=== PATIENT | male | born 1935 | race Caucasian/White ===

== ENCOUNTER 2019-09-14 14:20 | Inpatient (IN) | payer MEDICARE, OTHER ==
[~2019-09-14] VITALS: Ht 182.9 cm; Wt 70.8 kg
[2019-09-14] MEDS ORDERED: SODIUM CHLORIDE 0.9% 1,000 ML IV ONE (14:32)
[2019-09-14 15:03] LABS: Basophils # (auto) 0 10 ^3/uL (0-0.2); Basophils % (auto) 0.1 % (0.0-2.0); Eosinophils # (auto) 0 10 ^3/uL (0-0.8); Eosinophils % (auto) 0.2 % (0.0-7.0); Hematocrit 31.9 % (41.0-53.0); Hemoglobin 10.8 g/dL (13.5-17.5); Lymphocytes # (auto) 0.8 10 ^3/uL (0.4-5.4); Lymphocytes % (auto) 10.1 % (10.0-50.0); Mean Corpuscular Hemoglobin 33.1 pg (28.0-32.0); Mean Corpuscular Hgb Conc. 33.9 g/dL (32.0-36.0); Mean Corpuscular Volume 97.8 fL (80.0-100.0); Monocytes # (auto) 0.5 10 ^3/uL (0-1.3); Monocytes % (auto) 5.9 % (0.0-12.0); Neutrophils # (auto) 6.7 10 ^3/uL (1.6-8.6); Neutrophils % (auto) 83.7 % (37.0-80.0); Platelet Count (auto) 207 10^3/uL (140-450); Red Blood Cells 3.26 10^6/uL (4.5-5.90); Red Cell Distribution Width 13.9 % (11.8-14.3)
[2019-09-14 15:17] LABS: Albumin 3.5 g/dL (3.4-5.0); Anion Gap 15 (5-15); Blood Urea Nitrogen 68 mg/dL (7-18); Calcium 8.3 mg/dL (8.5-10.1); Carbon Dioxide 21 mmol/L (21-32); Chloride 98 mmol/L (98-107); Glucose 81 mg/dL (74-106); Potassium 4.2 mmol/L (3.5-5.1); Sodium 134 mmol/L (136-145)
[2019-09-14 15:22] LABS: Alanine Aminotransferase 31 U/L (16-61); Alkaline Phosphatase 73 U/L (45-117); Aspartate Aminotransferase 47 U/L (15-37); BUN/Creatinine Ratio 17.8; Bilirubin, Total 1.3 mg/dL (0.2-1.0); GFR African American 19 mL/min; GFR Non-African American 16 mL/min; Total Protein 7.1 g/dL (6.4-8.2)
[2019-09-14 16:11] LABS: INR > 8.0 (0.9-1.15)
[2019-09-14 16:12] LABS: Partial Thromboplastin Time 85.3 sec (23.64-32.05)
[2019-09-14] MEDS ORDERED: FUROSEMIDE 20 MG/2 ML VIAL IV ONE ×2 (16:15→16:30)
[2019-09-14] MEDS ORDERED: ALUM & MAG HYDROX-SIMETH LIQ(MAALOX) 30 ML PO PRN (16:30)
[2019-09-14] MEDS ORDERED: DOCUSATE SOD 100 MG CAP PO PRN (16:30)
[2019-09-14] MEDS ORDERED: PHYTONADIONE(VitK) ORAL Susp 10mg/10ml(1mg/ml) PO ONE (16:30)
[2019-09-14] MEDS ORDERED: NITROGLYCERIN 0.4 MG SL TAB SL PRN (16:30)
[2019-09-14] MEDS ORDERED: MORPHINE SULF INJ 2 MG/ML SYRINGE 1ML IV PRN ×2 (16:30)
[2019-09-14] MEDS ORDERED: CALCIUM GLUC 4.65meq/50ml D5AE 50 ML IV ONE (16:30)
[2019-09-14] MEDS ORDERED: ONDANSETRON HCL 4 MG/2 ML VIAL IV PRN (16:30)
[2019-09-14] MEDS ORDERED: POTASSIUM CHL 20MEQ/100ML 100 ML IV ONE (16:30)
[2019-09-14] MEDS ORDERED: MAGNESIUM SULFATE 1GM/100ML 100 ML IV ONE (16:30)
[2019-09-14] MEDS ORDERED: LORazepam 0.5 MG TAB PO PRN (16:30)
[2019-09-14] MEDS: HYDROcodone-ACET 5/325MG TAB PO PRN ×2 (16:55→22:25)
[2019-09-14] MEDS: TAMSULOSIN HYDROCHLORIDE 0.4 MG CAP PO SCH (18:35)
[2019-09-14 18:44] LABS: Urine Bacteria FEW /hpf (None Seen); Urine Blood TRACE /uL (Negative); Urine Hyaline Cast FEW /lpf (0 - 2); Urine Mucus FEW (None Seen); Urine Specific Gravity 1.006 (1.001-1.035); Urine WBC 1 /hpf (0 - 3)
[2019-09-14] MEDS: SODIUM CHLORIDE 0.9% 1,000 ML IV SCH (19:02)
[2019-09-14 19:55] LABS: Cholesterol 126 mg/dL (< 200); HDL Cholesterol 47 mg/dL (40-59); LDL Cholesterol 60 mg/dL (< 100); Triglycerides 100 mg/dL (< 150)
[2019-09-14 20:40] VITALS: BP 116/73
--- NOTE | 2019-09-14 20:40 | NUR ---
Telemetry admit from ER LUL SALAZAR admitted to Telemetry unit after SBAR received. Patient oriented to Isis Bello, primary RN, unit, room, bed, and unit policies regarding patient care. Patient now on continuous telemetry monitoring, tele box # and telemetry reading on arrival to unit is SR 92 . Patient placed on bedside oxygen, weighed by bed scale and encouraged to call if they need something. PATIENT IS FORGETFUL. ADMISSION WILL BE COMPLETED USING CHART. UNABLE TO CONTACT FAMILY, PATIENT DOES NOT REMEMBER PHONE NUMBERS. PATIENT DOES NOT HAVE PREVIOUS VISITS RECORDED. Note:
--- NOTE | 2019-09-14 21:12 | NUR ---
CALL FROM [employer] STATED THAT PATIENT IS POSITIVE FOR COVID-19 CHARGE NURSE AWARE.
[2019-09-14] MEDS: ATORVASTATIN 20 MG TAB PO SCH (21:53)
[2019-09-14] MEDS: GABAPENTIN 100 MG CAP PO SCH (21:54)
[2019-09-14] MEDS: METOPROLOL TARTRATE 25 MG TAB PO SCH (21:54)
--- NOTE | 2019-09-15 01:44 | NUR ---
BELONGINGS FORM SIGNED BY TO RNs IN ORDER TO AVOID BRINGING FORM IN AND OUT OF ROOM. PATIENT IS COVID-19 POSITIVE.
--- NOTE | 2019-09-15 01:45 | NUR ---
UNABLE TO OBTAIN HOME MEDS. PATIENT IS FORGETFUL ORIENTED X2.
--- NOTE | 2019-09-15 05:30 | NUR ---
CALLED LAB. PER EL DOCK MANAGER, SHE WILL PAGE ON FLOOR DOCK MANAGER TO WITHDRAW BLOOD FOR MORNING LABS.
--- NOTE | 2019-09-15 05:45 | NUR ---
MRSA SWAB SENT TO LAB.
[2019-09-15] MEDS ORDERED: FUROSEMIDE 20 MG/2 ML VIAL IV SCH (06:00)
--- NOTE | 2019-09-15 06:35 | NUR ---
PATIENT MOVED TO 237 PER CHARGE NURSE. ALL PERSONAL BELONGINGS WITH PATIENT.
--- NOTE | 2019-09-15 06:52 | NUR ---
ROUNDS PATIENT IS COMFORTABLE IN BED. NO S/SX OF DISTRESS, SOB OR PAIN. PATIENT IS CALM AND RELAXED. PATIENT IS STATING THAT DOCTOR RADHA IS HIS PRIMARY AND ENTRY LEVEL RECEPTIONIST; WILL ENDORSE FOLLOW UP TO DAY SHIFT NURSE.
--- NOTE | 2019-09-15 06:59 | NUR ---
FINE EMPTIED WITH 1750 MLS CLEAR YELLOW URINE.
--- NOTE | 2019-09-15 07:30 | NUR ---
Opening Shift Note Assumed care of patient, awake and alert. No S/S of distress/SOB or pain. Instructed on POC and to call for assist PRN, will continue to monitor for changes Q1hr and PRN. Fall precautions in place per safety protocol.
--- NOTE | 2019-09-15 07:30 | NUR ---
CLOSING NOTE- NOC SHIFT ENDORSED PATIENT CARE TO DAY SHIFT NURSE JESSICA GUZMÁN. PATIENT IS COMFORTABLE IN BED. NO S/SX OF DISTRESS, SOB OR PAIN.
[2019-09-15 07:49] LABS: Basophils # (auto) 0 10 ^3/uL (0-0.2); Basophils % (auto) 0.3 % (0.0-2.0); Eosinophils # (auto) 0.2 10 ^3/uL (0-0.8); Eosinophils % (auto) 2.8 % (0.0-7.0); Hematocrit 26.7 % (41.0-53.0); Hemoglobin 9.1 g/dL (13.5-17.5); Lymphocytes # (auto) 0.7 10 ^3/uL (0.4-5.4); Lymphocytes % (auto) 11.5 % (10.0-50.0); Mean Corpuscular Hemoglobin 33.2 pg (28.0-32.0); Mean Corpuscular Volume 97.6 fL (80.0-100.0); Monocytes # (auto) 0.4 10 ^3/uL (0-1.3); Monocytes % (auto) 7.6 % (0.0-12.0); Neutrophils # (auto) 4.6 10 ^3/uL (1.6-8.6); Neutrophils % (auto) 77.8 % (37.0-80.0); Platelet Count (auto) 171 10^3/uL (140-450); Red Blood Cells 2.74 10^6/uL (4.5-5.90); Red Cell Distribution Width 13.7 % (11.8-14.3); White Blood Cell 5.9 10^3/uL (4.4-10.8)
[2019-09-15 08:00] VITALS: BP 109/67
[2019-09-15 08:07] LABS: Albumin 2.8 g/dL (3.4-5.0); Calcium 7.7 mg/dL (8.5-10.1); Magnesium 3.1 mg/dL (1.6-2.6); Potassium 3.6 mmol/L (3.5-5.1)
[2019-09-15 08:10] LABS: BUN/Creatinine Ratio 18.8; Bilirubin, Total 1.2 mg/dL (0.2-1.0); Total Protein 5.9 g/dL (6.4-8.2)
[2019-09-15 08:25] LABS: INR 6.93 (0.9-1.15)
[2019-09-15 08:26] LABS: Partial Thromboplastin Time 83.2 sec (23.64-32.05)
--- NOTE | 2019-09-15 08:30 | NUR ---
Patient states he needs to go, this nurse asked, where? Patient replied and states, "I need to go with God, I need to call my son and daughter to tell them I need to go". This nurse asked patient if he felt like hurting himself and patient stated, "with what, I have nothing. I just need to go. this all needs to be done." This nurse reassured patient that he was in the hospital and we are helping him get better. Patient is being followed by medical social worker. Will inquire about tele psych consult as patient is COVID + at this time. Will cont to monitor patient.
[2019-09-15] MEDS: SODIUM CHLORIDE 0.9% 1,000 ML IV SCH (09:05)
--- NOTE | 2019-09-15 09:40 | NUR ---
Critical Lab Received critical INR 6.93 and PTT 85.3. MD Moy aware. Per MD Moy, she will look over labs and put in orders if needed. Will cont to monitor patient.
[2019-09-15] MEDS ORDERED: LISINOPRIL 5 MG TAB PO SCH (10:00)
[2019-09-15] MEDS ORDERED: NIFEdipine ER 30 MG TAB PO SCH (10:00)
[2019-09-15] MEDS ORDERED: POTASSIUM CHL 20 Meq TABLET PO SCH (10:00)
[2019-09-15] MEDS: GABAPENTIN 100 MG CAP PO SCH ×2 (10:56→21:17)
[2019-09-15] MEDS: METOPROLOL TARTRATE 25 MG TAB PO SCH (10:56)
[2019-09-15] MEDS ORDERED: PHYTONADIONE(VitK) ORAL Susp 10mg/10ml(1mg/ml) PO ONE (11:45)
[2019-09-15 12:00] VITALS: BP 114/78
--- NOTE | 2019-09-15 12:28 | NUR ---
Nutrition Assessment Notes Please refer to link for full assessment notes. Est Energy needs: 0745-5148 kcals (23-25 kcal/kgBW) Est Protein needs: 64-71 gms/day (1.0-1.1 gm/kgBW) Will continue to monitor and reassess prn. Addendum: 09/15/19 at [address] Amended: Links added.
--- NOTE | 2019-09-15 12:45 | NUR ---
Patient refusing to eat. This nurse educated patient on the importance of good nutrition for recovery, however patient still refusing to eat, stating "this needs to end." Patient already being followed by dietary. Will do Telepsych consult at this time for depression.
--- NOTE | 2019-09-15 13:00 | NUR ---
WOUND CARE NOTE: SPECIALTY AIR MATTRESS ORDERED AT THIS TIME. PATIENT TO BE PLACED, PENDING DELIVERY BY RACHEAL THAPA
--- NOTE | 2019-09-15 14:30 | NUR ---
Hospitalist at bedside MD Moreira at bedside, aware of patient status. MD moreira discussed plan of care and code status with patient thoroughly. Patient verbalized understanding and states he wants to be a DNR. Patient is alert and oriented x4. MD Moreira also asked about depression or suicidal thoughts, patient states, he would like to speak to a psychiatrist. MD Moreira will put imput orders for psych eval. Will carry out new orders and cont to monitor patient.
--- NOTE | 2019-09-15 15:21 | NUR ---
assessment re: ss consult Patient is a 83 year old male in Covid isolation. Per patients susy Tenorio prior to admission patient lived home with roommates and was independent prior to getting sick with covid 19. Per Jona patient was diagnosed positive covid 19 last month and was in [facility] [place] for 3 weeks. I informed Jona of patients ss consult of living alone, weakness and forgetful. Per Jona patient became depressed being in the hospital so long and now has returned again. Patient has been weak due to fighting Covid 19 for so long . Per Jona patients PCP is Dr Benton. Jona informed me one of patients roommates has moved out and there is one left who may be moving also. I informed Jona patients post discharge needs to be determined prior to discharge. I will try to speak with patient prior to discharge regarding his depression. Jona verbalized understanding. Addendum: 09/15/19 at 1528 by Stephany VARGAS Amended: Links added.
[2019-09-15 17:00] VITALS: BP 110/73
[2019-09-15] MEDS: Glucerna Carbsteady SHAKE Stawberry 8oz PO SCH (18:00)
[2019-09-15] MEDS ORDERED: Ensure Enlive Chocolate 8oz Bottle PO SCH (18:00)
--- NOTE | 2019-09-15 18:18 | NUR ---
Discharge instructions given as ordered. Encourage to follow up with PMD as instructed. All questions and concerns addressed. Patient verbalized understanding. Medication reconciliation form completed and copy given to patient. IV removed with catheter intact, pressure dressing applied. Telemetry unit returned to ICU. Patient taken to vehicle via wheelchair with all personal belongings, accompanied by staff wearing N95. No distress noted at time of departure. Addendum: 09/15/19 at 1820 by KALPESH LAGUERRE RN RN WRONG PATIENT
--- NOTE | 2019-09-15 18:25 | NUR ---
WOUND CARE NOTE: IN TO SEE PATIENT AT THIS TIME FOR WOUND CARE SKIN INTEGRITY MONITORING. PATIENT ADMITTED TO [facility] WITH DIAGNOSIS OF SYMPTOMATIC ANEMIA. HE IS COVID POSITIVE, IN COVID UNIT. PATIENT HAS CURRENT JOSE ROBERTO SCORE OF 12. PATIENT IS ASSESSED TO BE ABLE TO SELF TURN/REPOSITION SELF, BUT HE IS WEAK. PATIENT IS NOTED TO HAVE A LARGE HEMATOMA TO THE RIGHT FLANK, BUTTOCK, HIP, LATERAL THIGH. SKIN IS INTACT, DARK RED/PURPLE, INDURATED AT THE HIP. PATIENT RECEIVED THIS WOUND FROM A FALL LAST MONTH. HEMATOMA DOES APPEAR AN OLD WOUND, WITH FADING PURPLE AND DARK RED NOTED. LEFT OPEN TO AIR. OPTIFOAM GENTLE SACRAL DRESSING APPLIED PREVENTATIVE TO UPPER MEDIAL SACRUM. PATIENT ALSO NOTED TO HAVE A VARIETY OF SCABS NOTED TO HEAD AND LEFT KNEE. NO OPEN OR DRAINING WOUNDS NOTED. LEFT ALL OPEN TO AIR. RECOMMEND: SPECIALTY AIR MATTRESS (ORDERED), FREQUENT TURN SCHEDULE Q 2 HOURS, PRN CONDITION PERMITS, WITH PRESSURE REDISTRIBUTION USING PILLOWS/WEDGES, BID/PRN APPLICATION WITH MOISTURE BARRIER CREAM, OPTIFOAM GENTLE SACRAL DRESSING PREVENTATIVE, SKIN/WOUND CARE PLAN, DIETARY CONSULT, CONTINUED MONITORING BY WOUND CARE TEAM. Addendum: 09/15/19 at 1830 by Marija Morris RN Amended: Links added.
[2019-09-15] MEDS: TAMSULOSIN HYDROCHLORIDE 0.4 MG CAP PO SCH (18:38)
[2019-09-15] MEDS: HYDROcodone-ACET 5/325MG TAB PO PRN (18:38)
--- NOTE | 2019-09-15 18:39 | NUR ---
PAIN PATIENT REQUESTING [facility]CO AT THIS TIME FOR PAIN 11/05. ADMINISTERED NORCO, WILL CONT TO MONITOR PATIENT.
[2019-09-15 20:00] VITALS: BP 101/64
--- NOTE | 2019-09-15 20:25 | NUR ---
PATIENT TRANSFERRED ONTO SPECIALTY BED.
[2019-09-15] MEDS: ATORVASTATIN 20 MG TAB PO SCH (21:17)
--- NOTE | 2019-09-16 03:10 | NUR ---
CALL FROM [place] SAT O2 DROP TO 78% RAISED HEAD OF BED AND PLACED PATIENT ON NC AT 2L PATIENT CURRENT SAT O2 NOW AT 100%. PATIENT IS ALERT AND ORIENTED X4. VITAL SIGNS WITHIN NORMAL LIMITS. PATIENT IS COMFORTABLE IN BED.
--- NOTE | 2019-09-16 03:17 | NUR ---
OPENING NOTE- NOC SHIFT PATIENT IS ALERT AND ORIENTED X4. NO S/SX OF DISTRESS, SOB OR PAIN. PATIENT IS LAYING TO HIS LEFT SIDE. BEDRAILS UP X2 AND HEAD OF BED IS UP >30 DEGREES. BED LIGHT IS WITHIN REACH, CALL LIGHT WITHIN REACH. DISCUSSED POC WITH PATIENT AND INSTRUCTED PATIENT TO CALL PRN. DISCUSSED PATIENT UNDERSTANDING OF DNR; PATIENT VERBALIZES UNDERSTANDING AND CONTINUES TO WANT TO BE DNR. PATIENT IS COMFORTABLE IN BED AND DENIES PAIN AT THIS TIME. WILL CONTINUE TO MONITOR Q1H AND PRN. Addendum: 09/16/19 at 0320 by Isis Bello RN CORRECT TIME FOR THIS NOTE IS 09/15/191919
[2019-09-16] MEDS: SODIUM CHLORIDE 0.9% 1,000 ML IV SCH (03:57)
--- NOTE | 2019-09-16 04:00 | NUR ---
PATIENT ON CONTINUOUS SAT O2 MONITOR, CURRENT 96% ON 2L PATIENT IS COMFORTABLE IN BED, EYES CLOSED. BREATHS ARE EVEN AND UNLABORED.
--- NOTE | 2019-09-16 06:26 | NUR ---
BLOOD SPECIMEN SENT FOR MORNING LABS
[2019-09-16 06:27] LABS: Basophils # (auto) 0 10 ^3/uL (0-0.2); Basophils % (auto) 0.4 % (0.0-2.0); Eosinophils # (auto) 0.4 10 ^3/uL (0-0.8); Eosinophils % (auto) 8.1 % (0.0-7.0); Hematocrit 26.2 % (41.0-53.0); Hemoglobin 9.1 g/dL (13.5-17.5); Lymphocytes # (auto) 0.6 10 ^3/uL (0.4-5.4); Lymphocytes % (auto) 12.9 % (10.0-50.0); Mean Corpuscular Hemoglobin 33.9 pg (28.0-32.0); Mean Corpuscular Hgb Conc. 34.9 g/dL (32.0-36.0); Mean Corpuscular Volume 97.3 fL (80.0-100.0); Monocytes # (auto) 0.4 10 ^3/uL (0-1.3); Monocytes % (auto) 7.2 % (0.0-12.0); Neutrophils # (auto) 3.5 10 ^3/uL (1.6-8.6); Neutrophils % (auto) 71.4 % (37.0-80.0); Nucleated Red Blood Cells % 0.1 %; Platelet Count (auto) 148 10^3/uL (140-450); Red Cell Distribution Width 13.9 % (11.8-14.3); White Blood Cell 4.9 10^3/uL (4.4-10.8)
[2019-09-16 06:38] LABS: INR 1.86 (0.9-1.15); Partial Thromboplastin Time 39.5 sec (23.64-32.05)
[2019-09-16 06:43] LABS: Anion Gap 7 (5-15); BUN/Creatinine Ratio 20.3; Blood Urea Nitrogen 44 mg/dL (7-18); Calcium 7.4 mg/dL (8.5-10.1); Carbon Dioxide 25 mmol/L (21-32); Chloride 103 mmol/L (98-107); GFR African American 37 mL/min; GFR Non-African American 31 mL/min; Glucose 93 mg/dL (74-106); Potassium 3.5 mmol/L (3.5-5.1); Sodium 135 mmol/L (136-145)
--- NOTE | 2019-09-16 07:30 | NUR ---
Opening Shift Note Assumed care of patient, awake and alert. No S/S of distress/SOB or pain. Venegas in low position and draining. Patient resting in bed with O2 via N/C at 4L saturating approximately 97%. Bed in lowest and locked position with side rails up x2 and call light in reach. Instructed on POC and to call for assist PRN, will continue to monitor for changes Q1hr and PRN.
[2019-09-16 08:00] VITALS: BP 116/82
[2019-09-16] MEDS: Glucerna Carbsteady SHAKE Stawberry 8oz PO SCH ×3 (08:06→17:52)
[2019-09-16 08:30] VITALS: BP 116/82
--- NOTE | 2019-09-16 08:30 | NUR ---
PATIENT REFUSING BREAKFAST. RN EDUCATED PATIENT ON THE IMPORTANCE, RISKS AND BENEFITS OF NUTRITION. PATIENT VERBALIZED UNDERSTANDING. PATIENT PROCEEDED TO DRINK THE GLUCERNA CARBSTEADY SHAKE COMPLETELY. PATIENT CONTINUED TO REFUSE OTHER FOOD. RN NOTIFIED DR. ARZOLA ON THE PATIENTS POOR APPETITE.
[2019-09-16] MEDS: GABAPENTIN 100 MG CAP PO SCH ×2 (09:42→22:28)
[2019-09-16] MEDS: HYDROcodone-ACET 5/325MG TAB PO PRN (09:43)
[2019-09-16] MEDS ORDERED: CHOLECALCIFEROL (VITD3) 1,000IU=25mCg TAB PO SCH (10:00)
[2019-09-16] MEDS: DOCUSATE SOD 100 MG CAP PO SCH ×2 (10:19→22:28)
[2019-09-16 12:00] VITALS: BP 104/65
--- NOTE | 2019-09-16 12:30 | NUR ---
PATIENT REFUSING BREAKFAST. RN EDUCATED PATIENT ON THE IMPORTANCE, RISKS AND BENEFITS OF NUTRITION. PATIENT VERBALIZED UNDERSTANDING. PATIENT REFUSE FOOD AND GLUCERKINZA RUSH. Addendum: 09/16/19 at 1931 by RAUL MCKEON RN RN EDIT: PT REFUSING LUNCH
[2019-09-16 12:45] LABS: Folate (Folic Acid) 5.52 ng/mL (5.38-24)
[2019-09-16] MEDS ORDERED: CITALOPRAM HYDROBR 20 MG TAB PO ONE (13:00)
[2019-09-16 17:00] VITALS: BP 105/64
[2019-09-16] MEDS: TAMSULOSIN HYDROCHLORIDE 0.4 MG CAP PO SCH (17:52)
--- NOTE | 2019-09-16 18:00 | NUR ---
PATIENT REFUSING DINNER RN EDUCATED PATIENT ON THE IMPORTANCE, RISKS AND BENEFITS OF NUTRITION. PATIENT VERBALIZED UNDERSTANDING. PATIENT DRANK GLUCERNA CARBSTEADY SHAKE AND ATE ICE CREAM BUT REFUSED REST OF DINNER.
--- NOTE | 2019-09-16 19:30 | NUR ---
Opening Shift Note Assumed care of patient, awake and alert. No S/S of distress/SOB or pain. Venegas is patent and draining cloudy yellow urine to a drain bag. Patient resting in bed with O2 via N/C at 4L saturating approximately 97%. Bed in lowest and locked position with side rails up x2 and call light in reach. Instructed on POC and to call for assist PRN, will continue to monitor for changes Q1hr and PRN.
[2019-09-16 20:00] VITALS: BP 96/66
[2019-09-16] MEDS: ATORVASTATIN 20 MG TAB PO SCH (22:28)
[2019-09-16] MEDS: MIRTAZAPINE 30 MG TAB PO SCH (22:29)
[2019-09-17] VITALS: BP 115/69
[2019-09-17 04:00] VITALS: BP 117/73
--- NOTE | 2019-09-17 04:30 | NUR ---
PATIENT IS INCONTINENT OF BOWEL AND HAD 2 BOWEL MOVEMENTS ONE AFTER THE OTHER WITH SOFT BROWN MOVEMENT. COMPLETE BED CHANGED DONE.
--- NOTE | 2019-09-17 05:10 | NUR ---
LAB DRAW DONE AND SENT TO LAB. PATIENT TOLERATED WELL.
[2019-09-17 07:20] LABS: Calcium 7.8 mg/dL (8.5-10.1); Potassium 3.6 mmol/L (3.5-5.1)
[2019-09-17 07:23] LABS: BUN/Creatinine Ratio 21.1
--- NOTE | 2019-09-17 07:30 | NUR ---
Opening Shift Note Assumed care of patient, asleep and arouses to name and alert. No S/S of distress/SOB or pain. Venegas in low position and draining. Patient resting in bed on RA saturating approximately 97%. Bed in lowest and locked position with side rails up x2 and call light in reach. Instructed on POC and to call for assist PRN, will continue to monitor for changes Q1hr and PRN.
[2019-09-17 07:32] LABS: INR 1.3 (0.9-1.15); Partial Thromboplastin Time 33.9 sec (23.64-32.05)
[2019-09-17 08:00] VITALS: BP 127/67
[2019-09-17 08:10] VITALS: BP 127/67
--- NOTE | 2019-09-17 08:30 | NUR ---
PATIENT REFUSING BREAKFAST. RN EDUCATED PATIENT ON THE IMPORTANCE, RISKS AND BENEFITS OF NUTRITION. PATIENT VERBALIZED UNDERSTANDING. PATIENT REFUSE FOOD AND GLUCERNA CARBSTEADY SHAKE.
[2019-09-17] MEDS: Glucerna Carbsteady SHAKE Stawberry 8oz PO SCH ×3 (08:52→18:12)
[2019-09-17] MEDS: CITALOPRAM HYDROBR 20 MG TAB PO SCH (10:05)
[2019-09-17] MEDS: GABAPENTIN 100 MG CAP PO SCH ×2 (10:05→21:45)
[2019-09-17] MEDS: DOCUSATE SOD 100 MG CAP PO SCH ×2 (10:05→21:42)
[2019-09-17] MEDS: CARVEDILOL 3.125 MG TAB PO SCH ×2 (10:05→21:43)
--- NOTE | 2019-09-17 11:20 | NUR ---
Per RN pt reported not feeling well & stated he may feel better "in the afternoon". Addendum: 09/17/19 at 1308 by Petros Lang PTA Amended: Links added.
--- NOTE | 2019-09-17 12:30 | NUR ---
PATIENT REFUSING LUNCH. RN EDUCATED PATIENT ON THE IMPORTANCE, RISKS AND BENEFITS OF NUTRITION. PATIENT VERBALIZED UNDERSTANDING. PT CONTINUES TO REFUSE LUNCH.
--- NOTE | 2019-09-17 13:00 | NUR ---
PATIENT TEMPERATURE 100.4. INITIATED COOLING MEASURES. WILL RE-ASSESS.
[2019-09-17 13:06] VITALS: BP 101/65
--- NOTE | 2019-09-17 13:30 | NUR ---
PATIENT TEMPERATURE DECREASED. TEMPERATURE IS 99.5. WILL CONTINUE COOLING MEASURES.
--- NOTE | 2019-09-17 16:00 | NUR ---
COVID SAMPLE OBTAINED AND WALKED TO LAB VIA RAMIREZ SAHU.
--- NOTE | 2019-09-17 18:00 | NUR ---
PATIENT REFUSING DINNER RN EDUCATED PATIENT ON THE IMPORTANCE, RISKS AND BENEFITS OF NUTRITION. PATIENT VERBALIZED UNDERSTANDING. PATIENT DRANK GLUCERNA CARBSTEADY SHAKE AND REFUSED REST OF DINNER.
[2019-09-17] MEDS: TAMSULOSIN HYDROCHLORIDE 0.4 MG CAP PO SCH (18:12)
--- NOTE | 2019-09-17 19:30 | NUR ---
Opening Shift Note Assumed care of patient, asleep and arouses to name and alert. No S/S of distress/SOB or pain. Venegas in low position and draining. Patient resting in bed on RA saturating approximately 95%. Bed in lowest and locked position with side rails up x2 and call light in reach. Instructed on POC and to call for assist PRN, will continue to monitor for changes Q1hr and PRN.
[2019-09-17 20:00] VITALS: BP 129/70
[2019-09-17] MEDS: ATORVASTATIN 20 MG TAB PO SCH (21:44)
[2019-09-17] MEDS: MIRTAZAPINE 30 MG TAB PO SCH (21:46)
--- NOTE | 2019-09-17 22:00 | NUR ---
PATIENT HAS 1/2 BOX OF GLUCERNA AND 240ML OF WATER. RESTING IN BED WITH EYES CLOSED. NO DISTRESS NOTED.
[2019-09-18] VITALS (7 sets, daily range): BP systolic 97–124; BP diastolic 64–73
[2019-09-18 06:27] LABS: INR 1.64 (0.9-1.15); Partial Thromboplastin Time 41.9 sec (23.64-32.05)
--- NOTE | 2019-09-18 07:54 | NUR ---
Respiratory note: PT AWAKE, AND ALERT. NO RESPIRATORY DISTRESS NOTED. SPO2 96% ON RA, HR 92, RR 18, BS DIMINISHED BILATERALLY. NO FURTHER RESPIRATORY INTERVENTION INDICATED AT THIS TIME. WILL CONTINUE TO MONITOR PT.
--- NOTE | 2019-09-18 08:30 | NUR ---
PATIENT REFUSING BREAKFAST. RN EDUCATED PATIENT ON THE IMPORTANCE, RISKS AND BENEFITS OF NUTRITION. PATIENT VERBALIZED UNDERSTANDING. PATIENT REFUSE FOOD AND GLUCERNA CARBSTEADY SHAKE.
[2019-09-18 09:05] LABS: Hematocrit 26.1 % (41.0-53.0); Hemoglobin 8.7 g/dL (13.5-17.5)
[2019-09-18] MEDS: CITALOPRAM HYDROBR 20 MG TAB PO SCH (09:50)
[2019-09-18] MEDS: Glucerna Carbsteady SHAKE Stawberry 8oz PO SCH ×3 (09:50→18:56)
[2019-09-18] MEDS: DOCUSATE SOD 100 MG CAP PO SCH ×3 (09:51→22:39)
[2019-09-18] MEDS: GABAPENTIN 100 MG CAP PO SCH ×2 (09:51→22:40)
[2019-09-18] MEDS: CARVEDILOL 3.125 MG TAB PO SCH ×2 (09:51→22:00)
--- NOTE | 2019-09-18 12:30 | NUR ---
PATIENT REFUSING LUNCH. RN EDUCATED PATIENT ON THE IMPORTANCE, RISKS AND BENEFITS OF NUTRITION. PATIENT VERBALIZED UNDERSTANDING. PT CONTINUES TO REFUSE LUNCH.
--- NOTE | 2019-09-18 13:16 | NUR ---
Nutrition Followup Notes Pt wt is 64.0 kg Pt appetite is improved but fair, aeb 50% PO intake per RN doc. Pt with no noted distress per RN doc. Please refer to noted recommendations below. Will continue to closely monitor pertinent labs, PO intake and skin status prn. Will followup in 3-5 days Est Energy needs: 0524-9237 kcals (23-25 kcal/kgBW) Est Protein needs: 64-71 gms/day (1.0-1.1 gm/kgBW) Will continue to monitor and reassess prn.\ LABS: BUN 44 H, CR 1.61 H, GFR 44 L, CA 7.8 L, ALB 2.8 L GI: Last BM noted on 09/17 per RN doc. BS: 13 mod risk, hematoma intact. Please refer to wound assessment report for full details. PES: Problem 1) Inadequate oral intake r/t pt with 0% PO intake aeb pt reported refusal to eat 2) Altered nutrition related lab values r/t current/chronic medical condition aeb elev RFTs, mod hypoalbuminemia Comments Will continue to closely monitor pertinent labs, PO intake and skin status prn. Will followup in 3-5 days 1) Continue to closely monitor pt PO intake to meet at least 75% of meals 2) If pt appetite remains poor (<50% PO intake), consider supplemental nutrition support 3) Suggest Renal Specific 70g Pro, 2gNa, K2 grams, low phos diet 4) Continue current plan of care
[2019-09-18] MEDS: TAMSULOSIN HYDROCHLORIDE 0.4 MG CAP PO SCH (18:55)
--- NOTE | 2019-09-18 19:30 | NUR ---
Opening Shift Note Assumed care of patient, awake and alert. No S/S of distress/SOB or pain. Bed in lowest locked position, side rails up x2, call light within reach. Instructed on POC and to call for assist PRN, will continue to monitor for changes Q1hr and PRN. Addendum: 09/19/19 at 0509 by PRAVEENA VIRGEN RN RN ADDITION: BERENICE [address] at time of original note, will maintain precautions throughout shift.
--- NOTE | 2019-09-18 20:00 | NUR ---
Patient refusing new IV start at this time. Patient educated on importance of changing IV per hospital policy, patient continuing to refuse at this time. No s/s of distress, IV site is asymptomatic and patent. No s/s of distress, will continue to monitor.
[2019-09-18] MEDS: ATORVASTATIN 20 MG TAB PO SCH (22:39)
[2019-09-18] MEDS: MIRTAZAPINE 30 MG TAB PO SCH (22:40)
[2019-09-19] VITALS: BP 126/56
[2019-09-19 04:00] VITALS: BP 116/69
--- NOTE | 2019-09-19 07:00 | NUR ---
Closing Note Patient lying in bed, eyes closed, respirations even and unlabored, appears asleep. Patient awakens to name and touch. No s/s of distress, care endorsed to dayshift RN.
--- NOTE | 2019-09-19 08:00 | NUR ---
OPENING SHIFT NOTE: PATIENT RESTING IN BED. RESPIRATIONS EVEN AND UNLABORED. NO S/S OF DISTRESS NOTED AT THIS TIME. PATIENT A&OX4. DENIES ANY SOB. PATIENT SAT-UP AND ASSISTED IN EATING. PATIENT FINISHED GLUCERNA AND CREAM OF WHEAT. ASPIRATION PRECAUTIONS IN PLACE. PATIENT ALSO AMBULATED TO BEDSIDE COMMODE. PATIENT HAD SMALL LIQUID STOOL. ASSISTED BACK INTO BED. UPDATED ON POC. VERBALIZED UNDERSTANDING. BED IN LOWEST LOCKED POSITION WITH CALL LIGHT WITHIN REACH.
--- NOTE | 2019-09-19 08:29 | NUR ---
Respiratory note: HR 84, RR 16, SPO2 93% ON RA.
[2019-09-19 09:00] VITALS: BP 116/74
[2019-09-19] MEDS ORDERED: DOCUSATE SOD 100 MG CAP PO PRN (09:00)
[2019-09-19] MEDS: GABAPENTIN 100 MG CAP PO SCH ×2 (09:54→21:42)
[2019-09-19] MEDS: CARVEDILOL 3.125 MG TAB PO SCH ×2 (09:54→21:41)
[2019-09-19] MEDS: Glucerna Carbsteady SHAKE Stawberry 8oz PO SCH ×3 (09:54→18:54)
[2019-09-19] MEDS: CITALOPRAM HYDROBR 20 MG TAB PO SCH (09:54)
--- NOTE | 2019-09-19 10:15 | NUR ---
THIS RN ATTEMPTED TO MOVE PATIENT UP IN BED. DURING ATTEMPT THIS RNS RUBBER GLOVE PRESSED AGAINST PATIENTS ARM AND SKIN TEAR FORMED. THIS RN APPLIED A OPTIFOAM ON PATIENT ARMS TO COVER WOUND. PATIENT NOT COMPLAINING OF AN PAIN AT THIS TIME. WOUND CARE PHOTOS TAKEN. INFORMED RN GOMEZ OF WOUND CARE.
[2019-09-19 13:00] VITALS: BP 97/58
--- NOTE | 2019-09-19 15:17 | NUR ---
SPOKE TO PT VALERIE. STATED SHE WOULD WORK WITH PATIENT LATER TODAY.
--- NOTE | 2019-09-19 15:57 | NUR ---
SUZE PADILLA AT BEDSIDE.
[2019-09-19] MEDS: TAMSULOSIN HYDROCHLORIDE 0.4 MG CAP PO SCH (18:53)
[2019-09-19 19:00] VITALS: BP 119/73
--- NOTE | 2019-09-19 19:10 | NUR ---
Opening Shift Note Received report from elsa Justice RN. Assumed care of patient awake and alert. No S/S of distress/SOB or pain. Venegas in low position and draining. Patient resting in bed on RA saturating approximately 97%. Bed in lowest and locked position with side rails up x2 and call light in reach, and bed bed alarm turned on. Instructed on POC and to call for assist PRN, will continue to monitor for changes Q1hr and PRN.
[2019-09-19 20:00] VITALS: BP_SYST 103; BP_SYST 109; BP_DIAS 62; BP_DIAS 63
[2019-09-19] MEDS: ATORVASTATIN 20 MG TAB PO SCH (21:41)
[2019-09-19] MEDS: MIRTAZAPINE 30 MG TAB PO SCH (21:43)
[2019-09-20] VITALS: BP 116/63
[2019-09-20] MEDS: HYDROcodone-ACET 5/325MG TAB PO PRN ×2 (00:02→21:42)
--- NOTE | 2019-09-20 00:02 | NUR ---
[place] given for pain to bilateral lower extremity. Will monitor
[2019-09-20 04:38] VITALS: BP 106/61
--- NOTE | 2019-09-20 06:22 | NUR ---
Respiratory note: O2 CHECK: HR 83, RR 14, SPO2 99% ON 3 L NC, BS CLEAR AND DIMINISHED. NO SIGNS OR SYMPTOMS OF RESPIRATORY DISTRESS NOTED. PT IS SLEEPING COMFORTABLY.
[2019-09-20] MEDS: Glucerna Carbsteady SHAKE Stawberry 8oz PO SCH ×3 (08:00→18:17)
--- NOTE | 2019-09-20 08:00 | NUR ---
OPENING SHIFT NOTE: PATIENT RESTING IN BED. LOW FOWLERS. RESPIRATIONS EVEN AND UNLABORED. NO S/S OF DISTRESS NOTED AT THIS TIME. PATIENT ON ROOM AIR. PATIENT SAT-UP IN BED HIGH FOWLERS FOR BREAKFAST. ASSISTED PATIENT WITH GLUCERNA SHAKE AND BREAKFAST. BED IN LOWEST LOCKED POSITION WITH CALL LIGHT WITHIN REACH. WILL CONTINUE CARE.
[2019-09-20] MEDS: CITALOPRAM HYDROBR 20 MG TAB PO SCH ×2 (08:52→09:30)
[2019-09-20] MEDS: GABAPENTIN 100 MG CAP PO SCH ×2 (08:53→21:40)
[2019-09-20] MEDS: CARVEDILOL 3.125 MG TAB PO SCH ×2 (08:53→21:39)
--- NOTE | 2019-09-20 09:30 | NUR ---
PATIENT AMBULATED TO BEDSIDE COMMODE WITH ASSISTANCE.
--- NOTE | 2019-09-20 10:25 | NUR ---
PAGED LEGAL WRITING PROFESSOR.
--- NOTE | 2019-09-20 11:19 | NUR ---
RE-PAGED SLEEPING ROOM CLEANER.
--- NOTE | 2019-09-20 11:24 | NUR ---
CALLED AND SPOKE TO EL FROM CASE MANAGEMENT. THIS RN WAS PROVIDED WITH INFORMATION FOR [facility]. WILL FAX OVER REQUIRED DOCUMENTS.
[2019-09-20 13:00] VITALS: BP 103/64
--- NOTE | 2019-09-20 15:05 | NUR ---
CALLED [facility] AND PER IT AUDIT MANAGER THEY ARE CURRENTLY NOT ACCEPTING COVID-19 POSITIVE PATIENTS.
--- NOTE | 2019-09-20 15:06 | NUR ---
PAGED ENGLISH COMPOSITION INSTRUCTOR.
--- NOTE | 2019-09-20 15:09 | NUR ---
SPOKE WITH EL FROM CASE MANAGEMENT, STATED SHE WILL CALL OTHER HOSPICE AGENCIES TO SEE WHO WILL ACCEPT COVID POSITIVE PATIENTS.
--- NOTE | 2019-09-20 16:03 | NUR ---
Pt refused PT treatment today. Will attempt again tomorrow.
--- NOTE | 2019-09-20 16:29 | NUR ---
FAXED REQUIRED DOCUMENTS TO [facility] DIRECTED BY CASE MANAGEMENT EL.
[2019-09-20 17:30] VITALS: BP 99/51
[2019-09-20] MEDS: TAMSULOSIN HYDROCHLORIDE 0.4 MG CAP PO SCH (18:17)
--- NOTE | 2019-09-20 19:10 | NUR ---
[facility] INFORMATION: FAX: [phone] TELEPHONE: [phone]
--- NOTE | 2019-09-20 19:30 | NUR ---
Opening Shift Note Received report from elsa Justice RN. Assumed care of patient, awake and alert. Resting in bed comfortably. Patient states he is just tying to warm up. Turned aircon control up and provided one extra blanket to warm patient. No S/S of distress/SOB or pain, on room air saturating at g95%. Instructed on POC and to call for assist PRN, will continue to monitor for changes Q1hr and PRN. Bed placed in lowest position, bed alarm turned on and call light within reach.
[2019-09-20 20:00] VITALS: BP 109/76
[2019-09-20] MEDS: ATORVASTATIN 20 MG TAB PO SCH (21:40)
[2019-09-20] MEDS: MIRTAZAPINE 30 MG TAB PO SCH (21:41)
--- NOTE | 2019-09-20 22:00 | NUR ---
PATIENT DRANK ONE BOX OF CRANBERRY JUICE AND REFUSED TO DRINK WATER. WILL CONTINUE TO OFFER WHILE AWAKE.
[2019-09-21] VITALS: BP 103/61
[2019-09-21 04:00] VITALS: BP 104/64
--- NOTE | 2019-09-21 05:28 | NUR ---
PATIENT IS RESTING IN BED WITH EYES CLOSED, NO DISTRESS NOTED AND PATIENT DENIES PAIN. PATIENT IS ON ROOM AIR SATURATING AT 98%.
--- NOTE | 2019-09-21 06:00 | NUR ---
IV removal IV DC'd with sterile technique, catheter fully intact. Pressure dressing applied to site. Patient tolerated procedure well.
--- NOTE | 2019-09-21 06:00 | NUR ---
IV insertion IV access obtained, via clean sterile technique by inserting 22 gauge catheter at left AC after first attempt. IV secured properly. No trauma to site. Patient tolerated well.
[2019-09-21 08:00] VITALS: BP 113/72
[2019-09-21] MEDS: Glucerna Carbsteady SHAKE Stawberry 8oz PO SCH ×3 (09:49→17:17)
[2019-09-21] MEDS: CITALOPRAM HYDROBR 20 MG TAB PO SCH (09:49)
[2019-09-21] MEDS: GABAPENTIN 100 MG CAP PO SCH ×2 (09:50→20:17)
[2019-09-21] MEDS: CARVEDILOL 3.125 MG TAB PO SCH ×2 (09:53→20:55)
[2019-09-21 12:00] VITALS: BP 105/61
[2019-09-21] MEDS ORDERED: LACTULOSE 20Gm/30ML SOLN PO ONE (12:45)
[2019-09-21 16:10] VITALS: BP 118/69
[2019-09-21] MEDS: TAMSULOSIN HYDROCHLORIDE 0.4 MG CAP PO SCH (17:17)
--- NOTE | 2019-09-21 20:00 | NUR ---
Opening Shift Note Assumed care of patient, awake and alert, oriented x 4, follows direction, clear speech. On room air with even and unlabored respirations, no S/S of distress/SOB. Venegas intact and patent draining to gravity. Patient turns independently in bed. Bed in lowest locked position with side rails up x2 and call light within reach. Instructed on POC and to call for assist PRN, will continue to monitor for changes Q1hr and PRN.
[2019-09-21] MEDS: ATORVASTATIN 20 MG TAB PO SCH (20:18)
[2019-09-21] MEDS: MIRTAZAPINE 30 MG TAB PO SCH (20:24)
[2019-09-21] MEDS: HYDROcodone-ACET 5/325MG TAB PO PRN (21:09)
[2019-09-22 04:00] VITALS: BP 107/71
--- NOTE | 2019-09-22 07:15 | NUR ---
closing note patient resting in bed with even and unlabored respirations. no s/s of distress. bed in lowest locked position with side rails up x 2 and call light within reach. endorsed care to day shift RN.
[2019-09-22 08:00] VITALS: BP 98/68
[2019-09-22] MEDS: Glucerna Carbsteady SHAKE Stawberry 8oz PO SCH ×3 (08:39→19:29)
--- NOTE | 2019-09-22 09:08 | NUR ---
Weekend director alumni relations-I received a page from Nurse Vinh 09/20/19 letting me know that this patient has order for Hospice eval. Patient has no preference as to which hospice agency is used. I asked Nurse Vinh to fax to [facility]-per Vinh they will not accept COVID-19 + patient. I called [facility]-waiting for return call. I spoke with [facility]-they do accept COVID-19 + patients-I asked Vinh to fax to [facility]-I also provided him with phone number.
[2019-09-22] MEDS: GABAPENTIN 100 MG CAP PO SCH ×2 (09:28→20:09)
[2019-09-22] MEDS: CITALOPRAM HYDROBR 20 MG TAB PO SCH (09:28)
[2019-09-22] MEDS: CARVEDILOL 3.125 MG TAB PO SCH ×2 (09:29→21:37)
--- NOTE | 2019-09-22 09:59 | NUR ---
CALLED [facility] NO ANSWER AT THIS TIME. AWAITING CALL BACK
--- NOTE | 2019-09-22 10:33 | NUR ---
Nutrition Followup Notes Pt wt is 66.9 kg Pt is awaiting hospice eval. Pt is Covid 19+. Pt po intake is inadequate aeb multiple 25 and 50% po intake in RN doc. Continue to offer pt Glucerna shakes while po intake is inadequate. Est Energy needs: 9594-1956 kcals (23-25 kcal/kgBW) Est Protein needs: 64-71 gms/day (1.0-1.1 gm/kgBW) Will continue to monitor and reassess prn. LABS: BUN 34 H, CR 1.61 H, GFR 44 L, CA 7.8 L, ALB 2.8 L GI: Last BM noted on 09/18 per RN doc. BS: 13 mod risk, hematoma intact. Please refer to wound assessment report for full details. PES: Problem 1) Partially resolved: Inadequate oral intake r/t pt with 0% PO intake aeb pt reported refusal to eat 2) Altered nutrition related lab values r/t current/chronic medical condition aeb elev RFTs, mod hypoalbuminemia Comments Will continue to closely monitor pertinent labs, PO intake and skin status prn. Will followup in 3-5 days 1) Continue to closely monitor pt PO intake to meet at least 75% of meals 2) If pt appetite remains poor (<50% PO intake), consider supplemental nutrition support 3) Consider regular diet if pt on comfort care/hospice 4) Continue current plan of care
--- NOTE | 2019-09-22 11:16 | NUR ---
CALL FROM SON ARMEN ACCORDING TO SON HE WILL NOT BE STAYING TO HELP TAKE CARE OF FAMILY MEMBER. WILL NOTIFY MD AND TRANSPORT SPECIALIST
--- NOTE | 2019-09-22 11:22 | NUR ---
UPDATED MD Kamlesh ARZOLA RE: PT LIVING SITUATION. ACCORDING TO SHE WILL CALL FAMILY AND VERIFY
--- NOTE | 2019-09-22 11:45 | NUR ---
WOUND CARE NOTE: Wound care in to see patient for skin integrity monitoring. Patient continue resting on air mattress in Rm. 237. Patient is awake, alert and oriented. He's in no stated pain at this time. He's able to assist in turning and repositioning and his Toni score is 13. Skin assessment done with the assistance of patient's nurse, RAMIREZ Lemus. Patient's Rt lateral flank, lower back sacral and thigh continue to display intact ecchymosis, area is clean and dry, left open to air. His ecchymotic Rt posterior upper arm developed open partial thickness skin tear measuring 0.6x 4cm. Wound is red with purple ecchymotic fuad wound, no drainage/odor noted. Cleansed skin tear with NS, patted dry with gauze, applied Thera milton gel and covered with Opti foam gentle dressing. Multi scabbed abrasions remain the same to posterior scalp and cheek, area is clean and dry, left open to air. New photograph of wounds are taken for reference. Patient tolerated well, reposition for comfort facing his Lt side, redistributed pressure points with pillows. RAMIREZ Lemus at bedside. RECOMMENDATION: Continuation of all wound care orders prescribed by MD, continue with skin/wound plan of care, continue monitoring by wound care while patient is hospitalized. Addendum: 09/22/19 at 1522 by Nerissa Smith RN Amended: Links added.
[2019-09-22 12:00] VITALS: BP 108/69
--- NOTE | 2019-09-22 12:00 | NUR ---
PATIENT RE-SWABBED FOR COVID WALKED DOWN TO LAB BY COMPUTING SYSTEMS MECHANIC ELDER
--- NOTE | 2019-09-22 15:44 | NUR ---
re-assessment Per ss consult hospice evaluation and placement. Per patients son Jona he agrees to hospice and placement. Per Jona he has no preference on who provides service. Patient is Covid positive. I have contacted Sheeba from [facility] and she has hospice and placement for covid 19 patients. MD order has been sent to Sheeba. [facility] has accepted patient for service. All equipment will be delivered to [facility] at [address] in [place]. Jona verbalized understanding and agreed to placement on hospice. Per Dr Moy patient will be discharged in the AM. Addendum: 09/22/19 at 1548 by Stephany Dial Amended: Links added.
[2019-09-22] MEDS: TAMSULOSIN HYDROCHLORIDE 0.4 MG CAP PO SCH (19:29)
[2019-09-22] MEDS: MIRTAZAPINE 30 MG TAB PO SCH (20:10)
[2019-09-22] MEDS: ATORVASTATIN 20 MG TAB PO SCH (20:10)
[2019-09-22] MEDS: HYDROcodone-ACET 5/325MG TAB PO PRN (20:45)
[2019-09-23 00:10] VITALS: BP 106/66
[2019-09-23 05:04] VITALS: BP 98/60
--- NOTE | 2019-09-23 07:04 | NUR ---
closing note patient resting in bed with even and unlabored respirations. no s/s of distress. tele monitor and continuous pulse ox on. bed in lowest locked position with side rails up x 2 and call light within reach.
[2019-09-23 09:00] VITALS: BP 118/63
--- NOTE | 2019-09-23 09:15 | NUR ---
Opening Shift Note Assumed care of patient, awake and alert. No S/S of distress/SOB or pain. Instructed on POC and to call for assist PRN, will continue to monitor for changes Q1hr and PRN.
[2019-09-23] MEDS: Glucerna Carbsteady SHAKE Stawberry 8oz PO SCH ×3 (09:23→18:18)
[2019-09-23] MEDS: GABAPENTIN 100 MG CAP PO SCH ×2 (09:23→21:32)
[2019-09-23] MEDS: CITALOPRAM HYDROBR 20 MG TAB PO SCH (09:23)
[2019-09-23] MEDS: CARVEDILOL 3.125 MG TAB PO SCH ×2 (09:24→21:43)
[2019-09-23] MEDS ORDERED: CAR3125T PO (09:32)
[2019-09-23 09:51] VITALS: BP 118/63
--- NOTE | 2019-09-23 11:00 | NUR ---
re-assessment Per Zeny at [facility] transport will transport patient at 2pm today post discharge. I have also provided Jona cardozo son with [facility] phone number [phone]. Jona has been informed of transport time. Jona verbalized understanding and agreed to placement and hospice. Addendum: 09/23/19 at 1256 by Stephany VARGAS Amended: Links added.
--- NOTE | 2019-09-23 11:19 | NUR ---
Discharge instructions given as ordered. Encourage to follow up with PMD as instructed. All questions and concerns addressed. Patient verbalized understanding. Medication reconciliation form completed and copy given to patient. IV removed with catheter intact, pressure dressing applied, elkins catheter to be left inserted on discharge. Telemetry unit returned to ICU. Patient unable to sign discharge paperwork due to isolation precautions. Patient verbalized understanding. Patient and Son Jona notified that transportation should be picking up patient at 1400.
[2019-09-23 13:00] VITALS: BP 129/81
--- NOTE | 2019-09-23 14:00 | NUR ---
re-assessment I received a call from Germaine from [facility] stating they are not taking patient due to Covid 19 positive. Per Sheeba older adult social work specialist hospice knew patient was positive. I re-directed hospice order to [facility] with Jona's permission and per Farrah she has accepted patient. Farrah and Sheeba [facility] are looking for placement now. Addendum: 09/23/19 at 1619 by Stephany VARGAS Amended: Links added.
--- NOTE | 2019-09-23 15:08 | NUR ---
Hospice will now be [facility].
--- NOTE | 2019-09-23 15:33 | NUR ---
unable to obtain discharge photos. due to isolation.
[2019-09-23] MEDS: TAMSULOSIN HYDROCHLORIDE 0.4 MG CAP PO SCH (16:59)
--- NOTE | 2019-09-23 17:02 | NUR ---
SPOKE WITH PATIENTS SON ARMEN. ARMEN STATED THAT [facility] CALLED THEM AND STATED THAT THEY WERE NOT GOING TO TAKE THE PATIENT DUE TO COVID.
--- NOTE | 2019-09-23 17:08 | NUR ---
LEFT MESSAGE FOR [facility]NA LAUR[facility] AT [facility].
--- NOTE | 2019-09-23 17:39 | NUR ---
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
--- NOTE | 2019-09-23 17:45 | NUR ---
SPOKEE TO ANA LAURA AT [facility]. [facility] IS NOT WILLING TO TAKE PATIENT. THEY ARE CURRENTLY TRYING TO PLACE PATIENT.
--- NOTE | 2019-09-23 19:10 | NUR ---
Opening Shift Note Assumed care of patient, awake, alert and oriented x4, on room air with even and unlabored respirations, no S/S of distress/SOB or pain. Patient able to turn in bed independently, bed in lowest locked position, side rails up x2, and call light within reach. Instructed on POC and to call for assist PRN, will continue to monitor for changes Q1hr and PRN.
[2019-09-23] MEDS: ATORVASTATIN 20 MG TAB PO SCH (21:32)
[2019-09-23] MEDS: MIRTAZAPINE 30 MG TAB PO SCH (21:32)
[2019-09-23] MEDS: HYDROcodone-ACET 5/325MG TAB PO PRN (21:44)
[2019-09-23 22:00] VITALS: BP 126/75
[2019-09-24 06:00] VITALS: BP 114/69
[2019-09-24] MEDS: Glucerna Carbsteady SHAKE Stawberry 8oz PO SCH ×3 (09:37→18:06)
[2019-09-24] MEDS: CITALOPRAM HYDROBR 20 MG TAB PO SCH (10:28)
[2019-09-24] MEDS: CARVEDILOL 3.125 MG TAB PO SCH ×2 (10:30→21:51)
[2019-09-24] MEDS: GABAPENTIN 100 MG CAP PO SCH ×2 (10:30→21:40)
[2019-09-24] MEDS: TAMSULOSIN HYDROCHLORIDE 0.4 MG CAP PO SCH (18:05)
--- NOTE | 2019-09-24 19:30 | NUR ---
Opening Shift Note Assumed care of patient, awake and alert x4. Patient denies shortness of breath or pain at this time. Instructed on plan of care and encouraged patient to call for assistance, patient verbalized understanding. Bed is locked in lowest position, side rails x 2 are up, and call light is within reach.
[2019-09-24 20:00] VITALS: BP 109/68
[2019-09-24] MEDS: ATORVASTATIN 20 MG TAB PO SCH (21:40)
[2019-09-24] MEDS: MIRTAZAPINE 30 MG TAB PO SCH (21:40)
[2019-09-25] VITALS: BP 130/68
[2019-09-25 05:00] VITALS: BP 117/75
[2019-09-25] MEDS: HYDROcodone-ACET 5/325MG TAB PO PRN (05:31)
--- NOTE | 2019-09-25 07:20 | NUR ---
OPENING NOTE ASSUMED CARE OF PT. ALERT AND ORIENTED. NO S/S OF SOB/DISTRESS NOTED. BED SET TO LOWEST POSITION/LOCKED, BEDSIDE RAILS UP X2, CALL LIGHT WITHIN REACH. INSTRUCTED PT TO CALL FOR ASSISTANCE. UPDATED ON POC. PAT VERBALIZED UNDERSTANDING. WILL CONTINUE TO MONITOR Q1HR AND PRN.
[2019-09-25] MEDS: Glucerna Carbsteady SHAKE Stawberry 8oz PO SCH ×3 (08:00→18:00)
[2019-09-25 09:00] VITALS: BP 126/78
[2019-09-25] MEDS: CITALOPRAM HYDROBR 20 MG TAB PO SCH (09:02)
[2019-09-25] MEDS: CARVEDILOL 3.125 MG TAB PO SCH (09:03)
[2019-09-25] MEDS: GABAPENTIN 100 MG CAP PO SCH (09:04)
--- NOTE | 2019-09-25 11:05 | NUR ---
Nutrition Followup Notes Pt wt is 70.8 kg Pt is awaiting hospice eval. Pt po intake is inadequate aeb 58% po intake 09/23 in RN doc. Pt on comfort measures only per H/P. Continue to offer food/supplements per pt request for comfort measures Est Energy needs: 7106-1561 kcals (23-25 kcal/kgBW) Est Protein needs: 64-71 gms/day (1.0-1.1 gm/kgBW) Will continue to monitor and reassess prn. LABS: BUN 34 H, CR 1.61 H, GFR 44 L, CA 7.8 L, ALB 2.8 L, no new labs since 09/16 GI: Last BM noted on 09/24 per RN doc. BS: 16 mod risk, Please refer to wound assessment report for full details. PES: Problem 1) Partially resolved: Inadequate oral intake r/t pt with 0% PO intake aeb pt reported refusal to eat 2) Altered nutrition related lab values r/t current/chronic medical condition aeb elev RFTs, mod hypoalbuminemia Comments Will continue to closely monitor pertinent labs, PO intake and skin status prn. Will followup in 3-5 days 1) Continue to closely monitor pt PO intake to meet at least 75% of meals, offer pt supplements per pt request d/t comfort measures only 2) Consider regular diet if pt on comfort care/hospice 3) Continue current plan of care
[2019-09-25 13:00] VITALS: BP 120/72
--- NOTE | 2019-09-25 14:54 | NUR ---
re-assessment Patients discharge plan has changed. Patient is requesting to go to SNF for rehab. Dr Moy agrees and put in consult for SNF placement. Patient has no preference on a facility. MD order has been sent to [facility] and [facility]. Waiting for reply back now. Addendum: 09/25/19 at 1455 by Stephany Dial Amended: Links added.
--- NOTE | 2019-09-25 15:28 | NUR ---
COVID SWAB COVID SWAB COLLECTED AND WALK TO LAB BY RAMIREZ DACOSTA.
--- NOTE | 2019-09-25 16:13 | NUR ---
Pt declined PT treatment today. Will attempt again tomorrow.
--- NOTE | 2019-09-25 16:24 | NUR ---
re-assessment Per Sumi at [facility] she has accepted patient to room [address] Dennison is the accepting [facility]. [facility] post [facility]. Patient and Hannah soto RN and Maribeth GUZMÁN has been notified. Addendum: 09/25/19 at 1628 by Stephany Dial SS Amended: Links added.
--- NOTE | 2019-09-25 16:49 | NUR ---
GAVE REPORT AND ENDORSED CARE TO , RAMIREZ RG. NURSE IS AWARE OF TRANSFER AND NUCLEAR ENGINEER TIME 1800.
--- NOTE | 2019-09-25 16:50 | NUR ---
TRANSF[facility]CE[phone] LEAN MANUFACTURING SPECIALIST TIME HAS BEEN CHANGED TO 1800.
[2019-09-25 16:56] VITALS: BP 116/68
--- NOTE | 2019-09-25 17:02 | NUR ---
RECEIVED PATIENT, PATIENT ALERT AND ORIENTED. MACHINE PAINT MIXER PRINTING SUPERVISING CHEF FOR TX TO SNF. RECEIVING NURSE STATED SHE WOULD CALL REPORT FOR SNF.
--- NOTE | 2019-09-25 17:05 | NUR ---
REPORT REPORT CALLED AND GIVEN TO RAMIREZ HERNANDEZ AT [facility] .
--- NOTE | 2019-09-25 18:08 | NUR ---
[facility] HERE TO TRANSPORT PATIENT. GIVEN BRIEF REPORT. GIVEN PATIENT BELONGINGS. NO IV. ID BAND CUT OFF.
== END 2019-09-25 18:10 | disposition hospice, home (50) | DRG 177 ==
LOC: ER 14:20 → EDBD 14:20 → TELE 14:21 → TELE-EAST 20:40 → EAST 09-20 13:06 → WEST WING 09-25 16:54
PROVIDERS: ADMIT Hospitalist; ATTEND Internal Medicine
DX: U07.1 COVID-19 (principal); N17.0 Acute kidney failure with tubular necrosis; I50.33 Acute on chronic diastolic (congestive) heart failure; E44.0 Moderate protein-calorie malnutrition; I13.0 Hypertensive heart and chronic kidney disease with heart failure and stage 1 through stage 4 chronic kidney disease, or unspecified chronic kidney disease; N18.4 Chronic kidney disease, stage 4 (severe); R62.7 Adult failure to thrive; I48.0 Paroxysmal atrial fibrillation; E86.0 Dehydration; S70.11XA Contusion of right thigh, initial encounter; F32.9 Major depressive disorder, single episode, unspecified; D64.9 Anemia, unspecified; E78.5 Hyperlipidemia, unspecified; E83.51 Hypocalcemia; F03.90 Unspecified dementia, unspecified severity, without behavioral disturbance, psychotic disturbance, mood disturbance, and anxiety; N40.1 Benign prostatic hyperplasia with lower urinary tract symptoms; R33.8 Other retention of urine; S30.0XXA Contusion of lower back and pelvis, initial encounter; Z51.5 Encounter for palliative care; Z66 Do not resuscitate; W18.30XA Fall on same level, unspecified, initial encounter; Y93.89 Activity, other specified; Z79.01 Long term (current) use of anticoagulants; Y92.098 Other place in other non-institutional residence as the place of occurrence of the external cause; Y99.8 Other external cause status
CPT/HCPCS: 36415; 70450; 71045; 72192; 80048; 80053; 80061; 81001; 82306; 82607; 82728; 82746; 83036; 83735; 83880; 84100; 84443; 84484; 85014; 85018; 85025; 85610; 85730; 87070; 87081; 87804; 87880; 93005; 97110; 97116; 97163; 97530; 99291; G0378; J0610

== ENCOUNTER 2022-02-03 20:48 | Emergency (ER) | payer MEDICARE, MEDICAID ==
[~2022-02-03] VITALS: Ht 177.8 cm; Wt 95.0 kg
[~2022-02-03 20:48] MED LIST: CAR3125T PO
[2022-02-04 10:01] VITALS: BP 112/67
== END 2022-02-04 11:27 | disposition home or self-care (01) ==
LOC: ER 20:48 → EDBD 20:48 → ER 02-04 11:27
DX: T83.028A Displacement of other urinary catheter, initial encounter (principal); I10 Essential (primary) hypertension

== ENCOUNTER 2022-02-19 01:02 | Emergency (ER) | payer MEDICARE, MEDICAID ==
[~2022-02-19] VITALS: Ht 182.9 cm; Wt 72.0 kg
[2022-02-19 02:51] LABS: Urine Bacteria NONE SEEN /hpf (None Seen); Urine Blood 2+ /uL (Negative); Urine Specific Gravity 1.014 (1.001-1.035); Urine WBC 27 /hpf (0 - 3); Urine WBC Clumps PRESENT /hpf (None Seen)
[2022-02-19] MEDS ORDERED: DOCUSATE ORAL LIQUID 100 MG/10 ML UD GT ONE (03:45)
[2022-02-19 07:17] LABS: Basophils # (auto) 0.1 10 ^3/uL (0-0.2); Basophils % (auto) 0.9 % (0.0-2.0); Eosinophils # (auto) 0.3 10 ^3/uL (0-0.8); Eosinophils % (auto) 4.1 % (0.0-7.0); Hematocrit 44.2 % (41.0-53.0); Hemoglobin 14.7 g/dL (13.5-17.5); Lymphocytes # (auto) 2.1 10 ^3/uL (0.4-5.4); Lymphocytes % (auto) 26.6 % (10.0-50.0); Mean Corpuscular Hgb Conc. 33.3 g/dL (32.0-36.0); Mean Corpuscular Volume 84.1 fL (80.0-100.0); Monocytes # (auto) 0.8 10 ^3/uL (0-1.3); Monocytes % (auto) 10.2 % (0.0-12.0); Neutrophils # (auto) 4.5 10 ^3/uL (1.6-8.6); Neutrophils % (auto) 58.2 % (37.0-80.0); Red Blood Cells 5.25 10^6/uL (4.5-5.90); Red Cell Distribution Width 16.5 % (11.8-14.3); White Blood Cell 7.8 10^3/uL (4.4-10.8)
[2022-02-19 07:38] LABS: Albumin 3.3 g/dL (3.4-5.0); BUN/Creatinine Ratio 12.4; Calcium 8.2 mg/dL (8.5-10.1); Potassium 4.2 mmol/L (3.5-5.1)
[2022-02-19 07:40] LABS: Bilirubin, Total 0.4 mg/dL (0.2-1.0); Total Protein 6.3 g/dL (6.4-8.2)
[2022-02-19] MEDS ORDERED: cefTRIAXone 1GM/50ML D5W 50 ML IV ONE (08:00)
[2022-02-19] MEDS ORDERED: NITR-87 PO (10:04)
[2022-02-19 10:58] VITALS: BP 122/60
== END 2022-02-19 13:00 | disposition home or self-care (01) ==
LOC: EDBD 01:02 → EDUNIT# 01:02 → ER 01:04
DX: N39.0 Urinary tract infection, site not specified (principal); T83.010A Breakdown (mechanical) of cystostomy catheter, initial encounter; Z20.822 Contact with and (suspected) exposure to COVID-19
CPT/HCPCS: 36415; 74176; 80053; 81001; 83605; 85025; 87040; 87426; 96365; 99285; J0696

== ENCOUNTER 2022-03-29 17:56 | Inpatient (IN) | payer MEDICARE, MEDICAID ==
[~2022-03-29] VITALS: Ht 182.9 cm; Wt 75.0 kg
[~2022-03-29 17:56] MED LIST changes: +NITR-87 PO
[2022-03-29 20:28] LABS: Basophils # (auto) 0.1 10 ^3/uL (0-0.2); Basophils % (auto) 0.6 % (0.0-2.0); Eosinophils # (auto) 0.3 10 ^3/uL (0-0.8); Eosinophils % (auto) 3.6 % (0.0-7.0); Hematocrit 44.8 % (41.0-53.0); Hemoglobin 14.9 g/dL (13.5-17.5); Lymphocytes % (auto) 23.6 % (10.0-50.0); Mean Corpuscular Hemoglobin 27.9 pg (28.0-32.0); Mean Corpuscular Hgb Conc. 33.2 g/dL (32.0-36.0); Mean Corpuscular Volume 83.8 fL (80.0-100.0); Monocytes # (auto) 0.8 10 ^3/uL (0-1.3); Monocytes % (auto) 9.6 % (0.0-12.0); Neutrophils # (auto) 5.4 10 ^3/uL (1.6-8.6); Neutrophils % (auto) 62.6 % (37.0-80.0); Nucleated Red Blood Cells % 0.2 %; Red Blood Cells 5.35 10^6/uL (4.5-5.90); Red Cell Distribution Width 15.6 % (11.8-14.3); White Blood Cell 8.7 10^3/uL (4.4-10.8)
[2022-03-29 20:40] LABS: Albumin 2.9 g/dL (3.4-5.0)
[2022-03-29 20:43] LABS: Bilirubin, Total 0.5 mg/dL (0.2-1.0); INR 1.01 (0.9-1.15); Partial Thromboplastin Time 25.8 sec (24.6-33.4); Total Protein 5.4 g/dL (6.4-8.2)
[2022-03-29] MEDS ORDERED: levoFLOXacin 500MG 100 ML IV ONE (22:15)
[2022-03-29] MEDS ORDERED: ONDANSETRON HCL 4 MG/2 ML VIAL IV PRN (23:15)
[2022-03-29] MEDS ORDERED: MORPHINE SULFATE INJ 2 MG/ml SYRG IV PRN (23:15)
[2022-03-29] MEDS ORDERED: NITROGLYCERIN 0.4 MG SL TAB SL PRN (23:15)
[2022-03-29] MEDS ORDERED: DOCUSATE SOD 100 MG CAP PO PRN (23:15)
[2022-03-29] MEDS ORDERED: IBUPROFEN 600 MG TAB PO PRN (23:15)
[2022-03-29] MEDS ORDERED: ALBUMIN 25% 100 ML IV ONE (23:15)
[2022-03-30] MEDS: SODIUM CHLORIDE 0.9% 1,000 ML IV SCH ×2 (01:25→15:55)
[2022-03-30 01:56] LABS: Urine Blood Negative /uL (Negative); Urine Specific Gravity 1.015 (1.001-1.035)
[2022-03-30 02:22] LABS: Urine Amorphous Sediment Moderate /hpf; Urine Bacteria FEW /hpf (None Seen)
[2022-03-30 03:00] VITALS: BP 162/65
[2022-03-30 05:00] VITALS: BP_SYST 151; BP_SYST 162; BP_DIAS 65; BP_DIAS 83
[2022-03-30 05:24] LABS: Basophils # (auto) 0 10 ^3/uL (0-0.2); Basophils % (auto) 0.7 % (0.0-2.0); Eosinophils # (auto) 0.2 10 ^3/uL (0-0.8); Eosinophils % (auto) 3.2 % (0.0-7.0); Hematocrit 41.9 % (41.0-53.0); Hemoglobin 13.9 g/dL (13.5-17.5); Lymphocytes # (auto) 1.5 10 ^3/uL (0.4-5.4); Lymphocytes % (auto) 20.2 % (10.0-50.0); Mean Corpuscular Hemoglobin 28.1 pg (28.0-32.0); Mean Corpuscular Hgb Conc. 33.3 g/dL (32.0-36.0); Mean Corpuscular Volume 84.6 fL (80.0-100.0); Monocytes # (auto) 0.7 10 ^3/uL (0-1.3); Monocytes % (auto) 9.6 % (0.0-12.0); Neutrophils # (auto) 4.9 10 ^3/uL (1.6-8.6); Neutrophils % (auto) 66.3 % (37.0-80.0); Nucleated Red Blood Cells % 0.1 %; Red Blood Cells 4.95 10^6/uL (4.5-5.90); Red Cell Distribution Width 15.5 % (11.8-14.3); White Blood Cell 7.5 10^3/uL (4.4-10.8)
[2022-03-30 05:47] LABS: Potassium 4.2 mmol/L (3.5-5.1)
[2022-03-30] MEDS ORDERED: ZOLP10TA PO (05:53)
[2022-03-30] MEDS ORDERED: APIX2.5T PO (05:53)
[2022-03-30] MEDS ORDERED: ONDA-144 PO (05:53)
[2022-03-30] MEDS ORDERED: ATEN-60 PO (05:53)
[2022-03-30] MEDS ORDERED: LEVO-28 PO (05:53)
[2022-03-30] MEDS ORDERED: CEPH500C PO (05:53)
[2022-03-30] MEDS ORDERED: CLON0.2T PO (05:53)
[2022-03-30] MEDS ORDERED: NITR-52 PO (05:53)
[2022-03-30] MEDS ORDERED: HYDR12.56 PO (05:53)
[2022-03-30] MEDS ORDERED: BACL10TA PO (05:53)
[2022-03-30] MEDS ORDERED: PANT40TA2 PO (05:53)
[2022-03-30 05:54] LABS: Albumin 3.4 g/dL (3.4-5.0); Calcium 8.3 mg/dL (8.5-10.1); Total Protein 6.3 g/dL (6.4-8.2)
[2022-03-30 09:00] VITALS: BP 165/69
[2022-03-30] MEDS ORDERED: levoFLOXacin 500MG 100 ML IV SCH (10:00)
[2022-03-30] MEDS ORDERED: ENOXAPARIN SOD 40 MG/0.4 ML SYRINGE SC SCH (10:00)
[2022-03-30] MEDS: FAMOTIDINE (10MG/ML) 2ML VL IV SCH (10:56)
[2022-03-30] MEDS ORDERED: ERTAPENEM SOD INJ 1 GM in SODIUM CHL 0.9% 50 ML IV ONE (11:45)
[2022-03-30] MEDS ORDERED: LACTULOSE 20Gm/30ML SOLN PO ONE (11:45)
[2022-03-30] MEDS ORDERED: amLODIPine BESYLATE 5 MG TAB PO ONE (11:45)
[2022-03-30 13:00] VITALS: BP 166/74
[2022-03-30 16:58] VITALS: BP 153/74
[2022-03-30] MEDS: APIXABAN 2.5 MG TAB PO SCH (21:47)
[2022-03-30] MEDS: LACTULOSE 20Gm/30ML SOLN PO SCH (21:47)
[2022-03-30 22:00] VITALS: BP 160/77
[2022-03-31 05:00] VITALS: BP 151/70
[2022-03-31 05:34] LABS: Basophils # (auto) 0 10 ^3/uL (0-0.2); Basophils % (auto) 0.5 % (0.0-2.0); Eosinophils # (auto) 0.2 10 ^3/uL (0-0.8); Eosinophils % (auto) 2.8 % (0.0-7.0); Hematocrit 44.1 % (41.0-53.0); Hemoglobin 14.4 g/dL (13.5-17.5); Lymphocytes # (auto) 1.5 10 ^3/uL (0.4-5.4); Lymphocytes % (auto) 21.2 % (10.0-50.0); Mean Corpuscular Hemoglobin 27.6 pg (28.0-32.0); Mean Corpuscular Hgb Conc. 32.6 g/dL (32.0-36.0); Mean Corpuscular Volume 84.6 fL (80.0-100.0); Monocytes # (auto) 0.8 10 ^3/uL (0-1.3); Monocytes % (auto) 11.8 % (0.0-12.0); Neutrophils # (auto) 4.4 10 ^3/uL (1.6-8.6); Neutrophils % (auto) 63.7 % (37.0-80.0); Red Blood Cells 5.22 10^6/uL (4.5-5.90); Red Cell Distribution Width 15.7 % (11.8-14.3)
[2022-03-31 06:03] LABS: Albumin 3.3 g/dL (3.4-5.0); BUN/Creatinine Ratio 11.6; Bilirubin, Total 0.9 mg/dL (0.2-1.0); Calcium 8.3 mg/dL (8.5-10.1); Total Protein 5.6 g/dL (6.4-8.2)
[2022-03-31 09:00] VITALS: BP 135/73
[2022-03-31] MEDS: FAMOTIDINE (10MG/ML) 2ML VL IV SCH (09:14)
[2022-03-31] MEDS: APIXABAN 2.5 MG TAB PO SCH ×2 (09:14→21:45)
[2022-03-31] MEDS: ERTAPENEM SOD INJ 1 GM in SODIUM CHL 0.9% 50 ML IV SCH (09:14)
[2022-03-31] MEDS: SODIUM CHLORIDE 0.9% 1,000 ML IV SCH (09:16)
[2022-03-31] MEDS: amLODIPine BESYLATE 5 MG TAB PO SCH (09:16)
[2022-03-31] MEDS: LACTULOSE 20Gm/30ML SOLN PO SCH ×2 (09:16→20:44)
[2022-03-31 13:00] VITALS: BP 151/73
[2022-03-31 17:00] VITALS: BP 137/69
[2022-03-31] MEDS: HYDROcodone-ACET 5/325MG TAB PO PRN (21:55)
[2022-03-31 22:00] VITALS: BP 145/81
[2022-04-01] MEDS: SODIUM CHLORIDE 0.9% 1,000 ML IV SCH ×2 (01:04→16:54)
[2022-04-01 05:00] VITALS: BP 128/71
[2022-04-01 08:24] VITALS: BP 141/75
[2022-04-01] MEDS: FAMOTIDINE (10MG/ML) 2ML VL IV SCH (08:26)
[2022-04-01] MEDS: LACTULOSE 20Gm/30ML SOLN PO SCH ×2 (08:26→22:23)
[2022-04-01] MEDS: APIXABAN 2.5 MG TAB PO SCH ×2 (08:26→22:23)
[2022-04-01] MEDS: amLODIPine BESYLATE 5 MG TAB PO SCH (08:27)
[2022-04-01] MEDS: ERTAPENEM SOD INJ 1 GM in SODIUM CHL 0.9% 50 ML IV SCH (08:27)
[2022-04-01 12:50] VITALS: BP 130/60
[2022-04-01 16:55] VITALS: BP 133/64
[2022-04-01 22:00] VITALS: BP 143/70
[2022-04-02] MEDS: HYDROcodone-ACET 5/325MG TAB PO PRN ×2 (00:32→23:42)
[2022-04-02 05:00] VITALS: BP 133/67
[2022-04-02 09:00] VITALS: BP 141/69
[2022-04-02] MEDS: APIXABAN 2.5 MG TAB PO SCH ×2 (09:52→21:21)
[2022-04-02] MEDS: LACTULOSE 20Gm/30ML SOLN PO SCH ×3 (09:52→22:00)
[2022-04-02] MEDS: amLODIPine BESYLATE 5 MG TAB PO SCH (09:53)
[2022-04-02] MEDS ORDERED: VANCOMYCIN PER PHARMACY 0 MG IV SCH (10:00)
[2022-04-02] MEDS ORDERED: VANCOMYCIN 1GM/250ML 250 ML IV ONE (11:30)
[2022-04-02] MEDS: FAMOTIDINE 20 MG TAB PO SCH (11:49)
[2022-04-02 13:00] VITALS: BP 133/62
[2022-04-02 17:00] VITALS: BP 136/66
[2022-04-02 22:00] VITALS: BP 139/88
[2022-04-03] MEDS ORDERED: VANCOMYCIN 1GM/250ML 250 ML IV SCH (04:00)
[2022-04-03 05:00] VITALS: BP 140/67
[2022-04-03 05:36] LABS: Albumin 2.8 g/dL (3.4-5.0); BUN/Creatinine Ratio 7.4; Calcium 7.9 mg/dL (8.5-10.1); Phosphorus 2.1 mg/dL (2.5-4.90); Potassium 3.4 mmol/L (3.5-5.1)
[2022-04-03 08:00] VITALS: BP 138/64
[2022-04-03] MEDS ORDERED: cefTRIAXone 1GM/50ML D5W 50 ML IV SCH (09:00)
[2022-04-03] MEDS: APIXABAN 2.5 MG TAB PO SCH (10:03)
[2022-04-03] MEDS: LACTULOSE 20Gm/30ML SOLN PO SCH (10:03)
[2022-04-03] MEDS: amLODIPine BESYLATE 5 MG TAB PO SCH (10:04)
[2022-04-03] MEDS: FAMOTIDINE 20 MG TAB PO SCH (10:04)
[2022-04-03] MEDS ORDERED: POTASSIUM CHL 20 Meq TABLET PO ONE (10:30)
[2022-04-03 12:00] VITALS: BP 123/69
[2022-04-03 15:58] VITALS: BP 123/69
[2022-04-03 16:00] VITALS: BP 155/81
[2022-04-03] MEDS ORDERED: POTASSIUM EFFERVESENT TAB 25 MEQ GT ONE (16:00)
== END 2022-04-03 18:20 | DRG 698 ==
LOC: EDBD 17:56 → ER 17:56 → OVERFLOW 23:29 → CENTRAL 03-30 02:54
PROVIDERS: ADMIT Nurse Practitioner Family; ATTEND Internal Medicine
DX: T83.518A Infection and inflammatory reaction due to other urinary catheter, initial encounter (principal); A41.02 Sepsis due to Methicillin resistant Staphylococcus aureus; L03.311 Cellulitis of abdominal wall; N39.0 Urinary tract infection, site not specified; E87.1 Hypo-osmolality and hyponatremia; E44.0 Moderate protein-calorie malnutrition; Z66 Do not resuscitate; E77.8 Other disorders of glycoprotein metabolism; E88.09 Other disorders of plasma-protein metabolism, not elsewhere classified; B95.2 Enterococcus as the cause of diseases classified elsewhere; Z20.822 Contact with and (suspected) exposure to COVID-19; I48.91 Unspecified atrial fibrillation; I10 Essential (primary) hypertension; E78.5 Hyperlipidemia, unspecified; E11.9 Type 2 diabetes mellitus without complications; F03.90 Unspecified dementia, unspecified severity, without behavioral disturbance, psychotic disturbance, mood disturbance, and anxiety; Y84.8 Other medical procedures as the cause of abnormal reaction of the patient, or of later complication, without mention of misadventure at the time of the procedure; Z79.01 Long term (current) use of anticoagulants; Z88.8 Allergy status to other drugs, medicaments and biological substances; Z68.22 Body mass index [BMI] 22.0-22.9, adult; Y92.89 Other specified places as the place of occurrence of the external cause
CPT/HCPCS: 36415; 71045; 80053; 80069; 81003; 81015; 85025; 85610; 85730; 87040; 87077; 87081; 87086; 87088; 87186; 87205; 87426; 93005; 96361; 96365; G0378; J0696; J1335; J1956; J3490; P9047

== ENCOUNTER → 2023-12-17 | Outpatient (CLI) | payer MEDICARE, MEDICAID ==
[~2023-12-17] MED LIST changes: +APIX2.5T PO; +ATEN-60 PO; +BACL10TA PO; -CAR3125T PO; +CEPH500C PO; +CLON0.2T PO; +HYDR12.59 PO; +LEVO500T91 PO; +NITR-52 PO; -NITR-87 PO; +ONDA-144 PO; +PANT40TA2 PO; +ZOLP10TA PO
== END | disposition home or self-care (01) ==
LOC: Rad HDHVI 12:37
PROVIDERS: ATTEND Internal Medicine Cardiovascular Disease
DX: I10 Essential (primary) hypertension (principal)
CPT/HCPCS: 93306

== ENCOUNTER → 2023-12-23 | Outpatient (CLI) | payer MEDICARE, MEDICAID | END | disposition home or self-care (01) | LOC: Rad HDHVI 12:13 | PROVIDERS: ATTEND Internal Medicine Cardiovascular Disease | DX: M79.661 Pain in right lower leg (principal); M79.662 Pain in left lower leg | CPT/HCPCS: 93925 ==

== ENCOUNTER → 2024-08-03 | Outpatient (CLI) | payer MEDICARE, MEDICAID ==
[2024-08-03 10:45] VITALS: BP 102/62; PULSE 73; RESP 18; O2SAT 96
[2024-08-03] MEDS: MEROPENEM 1GM IVPB 100 ML IV ONE (10:56)
[2024-08-03] MEDS: MEROPENEM 1GM IVPB 50 ML IV ONE ×2 (11:05→11:45)
--- NOTE | 2024-08-03 12:27 | DVH ---
XY CHEST TWO VIEWS ROUTINE, HISTORY: SOB COMPARISON: None None TECHNICAL DATA: 2 view of the chest was obtained. FINDINGS: Lines and tubes: None Cardiomediastinal silhouette: normal Pulmonary vasculature: normal Lung expansion: normal Lung airspace: normal Lung interstitium: normal Pleura: normal Pneumothorax: no Bones: Unremarkable Other: no IMPRESSION: No acute intrathoracic abnormality.
[2024-08-03 13:04] VITALS: BP 112/67; PULSE 95; RESP 18; O2SAT 96
== END | disposition home or self-care (01) ==
LOC: Rad HDHVI 10:37
PROVIDERS: ATTEND Internal Medicine Cardiovascular Disease
DX: J40 Bronchitis, not specified as acute or chronic (principal); R06.02 Shortness of breath; E78.5 Hyperlipidemia, unspecified; I48.91 Unspecified atrial fibrillation; I13.0 Hypertensive heart and chronic kidney disease with heart failure and stage 1 through stage 4 chronic kidney disease, or unspecified chronic kidney disease; I50.33 Acute on chronic diastolic (congestive) heart failure; N18.4 Chronic kidney disease, stage 4 (severe); F33.9 Major depressive disorder, recurrent, unspecified; I48.0 Paroxysmal atrial fibrillation; Z79.899 Other long term (current) drug therapy; Z88.8 Allergy status to other drugs, medicaments and biological substances; Z20.822 Contact with and (suspected) exposure to COVID-19; Z86.14 Personal history of Methicillin resistant Staphylococcus aureus infection
CPT/HCPCS: 71046; 96365; 96366; G0463; J2185

== ENCOUNTER 2024-10-19 10:26 | Outpatient (CLI) | payer MEDICARE, MEDICAID ==
[2024-10-19 10:50] VITALS: BP 110/78; PULSE 93; RESP 16; O2SAT 92
[2024-10-19] MEDS: MULTIPLE VIT 10 ML IV ONE (10:58)
[2024-10-19] MEDS: MVI in SODIUM CHLORIDE 0.9% 500 ML IVB ONE (11:20)
[2024-10-19 13:37] VITALS: BP 129/67; PULSE 103; RESP 16; O2SAT 92
--- NOTE | 2024-11-02 13:39 | DVHSR ---
APPROVED REPORT EXAM: Two-dimensional and M-mode echocardiogram with Doppler and color Doppler. DIMENSIONS LVDd4.2 (3.8-5.7cm)LA (2D)4.2 (1.9-4.0cm)Aortic Root3.4 (2.0-3.7cm) LVDs3.3 (2.5-4.0cm)LA (MM) (1.9-4.0cm)Aortic Cusp Exc1.5 (1.5-2.0cm) EF (%) 43.3 (55-70%)Rt. Atrium6.0 (1.9-4.0cm)Asc. Aorta cm IVSd1.1 (0.7-1.1cm)RV (D)5.4 (1.8-2.4cm) PWd1.1 (0.7-1.1cm) Mitral Valve MitralMitral Stenosis E wave1.06m/sMV Mean GR.mmHg A wave0.36m/sMV Peak GR.25mmHg E/A ratio2.92D MVAcm2 DECEL [id number] 1/2 Timems Aortic Valve Aortic ValveAortic Stenosis V10.98m/Long Mean GR.3mmHg V21.15m/Long Peak GR.5mmHg Tricuspid Valve TR Velocity2.84m/s [id number] LEFT VENTRICLE The Ejection Fraction is 35-45%. RIGHT VENTRICLE The right ventricle is dilated. ATRIA The left atrium is dilated. The right atrium is dilated. MITRAL VALVE The mitral valve is normal in structure and function. Mitral regurgitation is mild. PULMONIC VALVE The pulmonic valve is not well visualized. TRICUSPID VALVE The tricuspid valve is grossly normal. There is mild to moderate tricuspid regurgitation. AORTIC VALVE The aortic valve opens well. No aortic regurgitation is present. GREAT VESSELS The aortic root is normal size. PERICARDIAL EFFUSION There is no pericardial effusion. Conclusion EF 40% MOD TR MARKED THUAN LAE MILD MR
== END 2024-10-19 17:00 | disposition home or self-care (01) ==
LOC: Rad HDHVI 10:26
PROVIDERS: ATTEND Internal Medicine Cardiovascular Disease
DX: E86.0 Dehydration (principal); I13.0 Hypertensive heart and chronic kidney disease with heart failure and stage 1 through stage 4 chronic kidney disease, or unspecified chronic kidney disease; E11.22 Type 2 diabetes mellitus with diabetic chronic kidney disease; I50.33 Acute on chronic diastolic (congestive) heart failure; N18.4 Chronic kidney disease, stage 4 (severe); E78.5 Hyperlipidemia, unspecified; I48.0 Paroxysmal atrial fibrillation; F33.9 Major depressive disorder, recurrent, unspecified; I36.1 Nonrheumatic tricuspid (valve) insufficiency; I34.0 Nonrheumatic mitral (valve) insufficiency; Z79.899 Other long term (current) drug therapy; Z88.8 Allergy status to other drugs, medicaments and biological substances; Z79.01 Long term (current) use of anticoagulants; Z87.440 Personal history of urinary (tract) infections
CPT/HCPCS: 93306; 96365; 96366; G0463; J3411; J3475; J7040; 96360; 96361